=== PATIENT | female | born 1995 | race Caucasian/White ===

== ENCOUNTER 2023-03-01 12:07 | Emergency (ER) | payer OTHER | END 2023-03-01 15:00 | disposition home or self-care (01) | LOC: MW.ED 12:07 | DX: L03.211 Cellulitis of face (principal); Z39.1 Encounter for care and examination of lactating mother; Z88.5 Allergy status to narcotic agent | CPT/HCPCS: 99283 ==

== ENCOUNTER 2024-01-21 16:17 | Emergency (ER) | payer SELFPAY | END 2024-01-21 17:37 | disposition left against medical advice (07) | LOC: MW.ED 16:17 | DX: Z53.21 Procedure and treatment not carried out due to patient leaving prior to being seen by health care provider (principal) ==

== ENCOUNTER 2025-01-16 21:19 | Emergency (ER) | payer SELFPAY ==
[2025-01-16] MEDS: Amoxicillin/Clavulanate K 875-125 MG Tab PO ONE (22:13)
== END 2025-01-16 22:20 | disposition home or self-care (01) ==
LOC: MW.ED 21:19
DX: S02.5XXA Fracture of tooth (traumatic), initial encounter for closed fracture (principal); K04.7 Periapical abscess without sinus; Z88.5 Allergy status to narcotic agent; X58.XXXA Exposure to other specified factors, initial encounter
CPT/HCPCS: 99283; A9270